=== PATIENT | female | born 1990 | race African-American/Black ===

== ENCOUNTER 2017-03-15 09:18 | Emergency (ER) | payer OTHER ==
[~2017-03-15] VITALS: Ht 165.1 cm; Wt 100.7 kg
[~2017-03-15 09:18] MED LIST: COLACE100 MG PO; TRINATE TABLET1 TAB PO
[2017-03-15] MEDS ORDERED: NEXPLANON68 MG (09:22)
[2017-03-15 09:53] LABS: HEMATOCRIT 37.4 % (37.0-47.0); HEMOGLOBIN 12.2 gm/dL (12.0-15.0); MCH 24.6 pg (26.0-34.0); MCHC 32.6 g/dL (28.0-37.0); MCV 75.4 fL (80.0-100.0); PLATELET COUNT 281 thou/uL (150-400); RBC 4.95 mil/uL (4.20-5.00); WBC 2.8 thou/uL (4.0-11.0)
[2017-03-15 10:02] LABS: URINE BILIRUBIN NEGATIVE (Negative); URINE BLOOD 3+ (Negative); URINE CLARITY CLOUDY; URINE COLOR RED; URINE GLUCOSE-RANDOM* NEGATIVE (Negative); URINE KETONES TRACE (Negative); URINE LEUKOCYTES TRACE (Negative); URINE NITRITE POSITIVE (Negative); URINE PROTEIN (DIPSTICK) 2+ (Negative); URINE SPECIFIC GRAVITY >= 1.030 (1.005-1.035)
[2017-03-15 10:04] LABS: CALCIUM 8.2 mg/dL (8.5-10.1); POTASSIUM 4.1 mmol/L (3.5-5.1)
[2017-03-15 10:09] LABS: CASTS None Seen /LPF (None Seen)
[2017-03-15 10:12] LABS: BACTERIA None Seen /HPF (None Seen); CRYSTALS None Seen /LPF (None Seen); SQUAMOUS >10 Many /LPF (0-3); URINE RBC >20 Many /HPF (0-2); URINE WBC 0-5 Rare /HPF (0-5)
[2017-03-15] MEDS ORDERED: PHENERGAN 25 MG25 M1 PO (10:45)
[2017-03-15] MEDS ORDERED: MACROBID 100 M100 M1 PO (10:59)
[2017-03-15 11:15] LABS: ABSOLUTE NEUTROPHILS 0.6 thou/uL (1.4-8.2); PLATELET ESTIMATE NORMAL
== END 2017-03-15 11:20 | disposition home or self-care (01) ==
LOC: ER 09:18
PROVIDERS: Physician Assistant
DX: J06.9 Acute upper respiratory infection, unspecified (principal); R11.2 Nausea with vomiting, unspecified; E86.0 Dehydration; N39.0 Urinary tract infection, site not specified; B34.9 Viral infection, unspecified; Z88.1 Allergy status to other antibiotic agents